=== PATIENT | male | born 1995 | race Caucasian/White ===

== ENCOUNTER 2017-10-22 02:24 | Emergency (ER) | payer SELFPAY ==
[~2017-10-22] VITALS: Ht 190.5 cm; Wt 83.0 kg
[~2017-10-22 02:24] MED LIST: CEPH500C3 PO; IBUP600T26 PO; ROBA750T3 PO; SILV1CRE59 TOP
[2017-10-22 02:25] VITALS: BP 146/75; PULSE 74; RESP 16; TEMP 98.9; O2SAT 99
--- NOTE | 2017-10-22 03:57 | PD ---
HPI Chief Complaint: Injury Time Seen by Provider: 03:45 Travel History International Travel<30 days: No Contact w/Intl Traveler<30days: No Traveled to known affect area: No History of Present Illness HPI 22-year-old white male presents to emergency Department with complaints of right knee pain after injury 3 weeks ago doing a kickup. The patient states that he is going to school for wrestling and that this is a typical maneuver. He's done this many times in the past. He states that he had kicked his legs out and had a pop occur in his right knee. 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 He had noticed increasing pain throughout the day but continued to work. Since then he has had a large amount of swelling in his knee and decreased ability to bear weight. He states that he had taken a week off from work and hopes had this problem resolved but has continued. He denies any numbness or tingling. No locking or giving out. PFSH Past Medical History Medical History: Denies Significant Hx Developmental Delay: No Diminished Hearing: No Immunizations Current: Yes Tetanus Vaccination: Unknown Past Surgical History Tympanostomy Tube: Yes Social History Alcohol Use: Yes (OCC) Tobacco Use: Yes (ONE BLACK AND MILDS PER DAY ) Substance Use: Yes (POT) Allergies-Medications (Allergen,Severity, Reaction): Coded Allergies: No Known Allergies (Verified , 05/07/16) Reported Meds & Prescriptions Reported Meds & Active Scripts Active Diclofenac Sodium DR (Diclofenac Sodium) 75 Mg Tabdr 75 Mg PO BID Review of Systems General / Constitutional: No: Fever Eyes: No: Visual changes HENT: No: Headaches Cardiovascular: No: Chest Pain or Discomfort Respiratory: No: Shortness of Breath Gastrointestinal: No: Abdominal Pain Genitourinary: No: Dysuria Musculoskeletal: Positive: Arthralgias, Limited ROM, Edema, Pain, No: Myalgias , Weakness, Cramping Skin: No Rash Neurologic: No: Weakness Psychiatric: No: Depression Endocrine: No: Polydipsia Hematologic/Lymphatic: No: Easy Bruising Physical Exam Narrative GENERAL: This is a well-nourished, well-developed patient, in no apparent distress. SKIN: No rashes, ecchymoses or lesions. Warm and dry. HEAD: Atraumatic. Normocephalic. EYES: PERRL, EOMI, no discharge or injection. No scleral icterus. EARS: Clear NOSE: Nasal turbinates appear normal. THROAT: Mucosa pink and moist. Airway patent. NECK: Trachea midline. supple, moves head freely. LUNGS: Clear to auscultation. CV: Regular in rhythm. ABDOMEN: Soft nontender. EXT: No clubbing cyanosis or edema. Examination the right lower extremity reveals a joint effusion in the knee. He has full extension but has limited flexion due to pain. No anterior posterior draw. No medial lateral collateral ligament instability or pain. Patient has pain to the infrapatellar region. Positive pain on meniscal testing. No pain in the hip, ankle or foot. He has intact sensation with good distal pulses. Ambulates with antalgic gait. The left lower extremity as well as upper extremities are unremarkable for acute bony tenderness or deformity. Neurovascular intact. Data Data Last Documented VS Vital Signs Date Time Temp Pulse Resp B/P (MAP) Pulse Ox O2 Delivery O2 Flow Rate FiO2 10/22/17 03:14 Room Air 10/22/17 02:25 98.9 74 16 146/75 (98) 99 Orders Orders Knee, Complete (4vws) (10/22/17 03:49) MDM Medical Decision Making Medical Screen Exam Complete: Yes Emergency Medical Condition: Yes Medical Record Reviewed: Yes Interpretation(s) Right knee: Negative for acute fracture. Differential Diagnosis MDM: High Differential diagnoses: Fracture, sprain, strain, dislocation, contusion, neurovascular injury Narrative Course X-ray of the right knee is negative for bony injury. The radiologist also agrees that the x-rays negative. Patient will be given prescription for diclofenac and advised to follow-up with orthopedics. Diagnosis Primary Impression: right knee sprain Patient Instructions: General Instructions Additional Instructions: Rest. Elevation. Ice packs for the next 3 days. Negrito wrap and crutches. weight-bearing as tolerated. Medications as directed Follow-up with an orthopedist or your doctor in one week. Return to the ER if any problems Med/Other Pt SpecificInfo: Prescription(s) given Scripts Diclofenac Sodium DR (Diclofenac Sodium DR) 75 Mg Tabdr 75 MG PO BID, #20 TAB 0 Refills Prov: Esequiel Bradley MD 10/22/17 Disposition: 01 DISCHARGE HOME Condition: Stable Skyler Diaz Oct 22, 2017 03:57
--- NOTE | 2017-10-22 05:29 | RADRPT ---
EXAM DATE/TIME: 10/22/2017 04:16 [facility] COMPARISON: No previous studies available for comparison. INDICATIONS : Right knee pain after fall while trying to do a back flip. MEDICAL HISTORY : None. SURGICAL HISTORY : None. ENCOUNTER: Initial ACUITY: 1 week PAIN SCORE: 5/10 LOCATION: Right knee. FINDINGS: Four view examination of the right knee demonstrates no evidence of fracture or dislocation. Bony mi neralization is normal. The articular surfaces are intact. The suprapatellar soft tissues have a no rmal configuration. CONCLUSION: Unremarkable examination of the right knee. Ta Posey MD on October 22, 2017 at 5:28 Board Certified Radiologist. This report was verified electronically.
[2017-10-22] MEDS ORDERED: DICL75TA PO (05:31)
== END 2017-10-22 05:54 | disposition home or self-care (01) ==
LOC: NEPD 02:24
DX: S83.91XA Sprain of unspecified site of right knee, initial encounter (principal); X50.9XXA Other and unspecified overexertion or strenuous movements or postures, initial encounter; Y93.72 Activity, wrestling
CPT/HCPCS: 73564; 99283